=== PATIENT | female | born 1950 | race Caucasian/White ===

== ENCOUNTER 2021-07-06 12:30 | Outpatient (CLI) | payer MEDICARE, BC | END 2021-07-06 12:31 | disposition home or self-care (01) | LOC: CSHMAMMO 12:30 | PROVIDERS: ATTEND Physician Assistant | DX: Z12.31 Encounter for screening mammogram for malignant neoplasm of breast (principal) | CPT/HCPCS: 77063; 77067 ==

== ENCOUNTER 2022-07-07 11:34 | Outpatient (CLI) | payer MEDICARE, BC | END 2022-07-07 11:35 | disposition home or self-care (01) | LOC: CSHMAMMO 11:34 | PROVIDERS: ATTEND Physician Assistant | DX: Z12.31 Encounter for screening mammogram for malignant neoplasm of breast (principal) | CPT/HCPCS: 77063; 77067 ==

== ENCOUNTER 2023-02-22 08:19 | Day surgery (SDC) | payer MEDICARE, BC ==
[2023-02-20 15:12] VITALS: BMI 34.2
[2023-02-22] MEDS ORDERED: PROPOFOL 20 ML ONE ×2 (11:01→11:04)
[2023-02-22] MEDS ORDERED: Glucagon 1 MG/ML KIT ONE (11:03)
== END 2023-02-22 12:18 | disposition home or self-care (01) ==
LOC: CSHSDC 08:19
PROVIDERS: ATTEND Internal Medicine Gastroenterology
PROC: 0D750ZZ Dilation of Esophagus, Open Approach (ICD-10-PCS; principal; 2023-02-22)
PROC: 0DB98ZX Excision of Duodenum, Via Natural or Artificial Opening Endoscopic, Diagnostic (ICD-10-PCS; 2023-02-22)
DX: K31.7 Polyp of stomach and duodenum (principal); D64.9 Anemia, unspecified; K21.9 Gastro-esophageal reflux disease without esophagitis; E03.9 Hypothyroidism, unspecified; E78.5 Hyperlipidemia, unspecified; I10 Essential (primary) hypertension; G47.00 Insomnia, unspecified; F32.A Depression, unspecified; Z88.5 Allergy status to narcotic agent; Z88.8 Allergy status to other drugs, medicaments and biological substances
CPT/HCPCS: 43239; 43450; J1611; 88305; J2704

== ENCOUNTER 2023-07-10 10:54 | Outpatient (CLI) | payer MEDICARE, BC | END 2023-07-10 10:55 | disposition home or self-care (01) | LOC: CSHMAMMO 10:54 | PROVIDERS: ATTEND Physician Assistant | DX: Z12.31 Encounter for screening mammogram for malignant neoplasm of breast (principal); Z13.820 Encounter for screening for osteoporosis; Z78.0 Asymptomatic menopausal state; M85.851 Other specified disorders of bone density and structure, right thigh; M85.852 Other specified disorders of bone density and structure, left thigh | CPT/HCPCS: 77063; 77067; 77080 ==

== ENCOUNTER 2024-10-10 12:21 | Outpatient (CLI) | payer MEDICARE, BC | END 2024-10-10 12:22 | disposition home or self-care (01) | LOC: CSHMAMMO 12:21 | PROVIDERS: ATTEND Physician Assistant | DX: Z12.31 Encounter for screening mammogram for malignant neoplasm of breast (principal) | CPT/HCPCS: 77063; 77067 ==